=== PATIENT | male | born 1990 | race Two or more races ===

== ENCOUNTER → 2024-07-22 09:15 | Outpatient (BNVA) | payer OTHER, SELFPAY | PROVIDERS: Visit Provider Physician Assistant Medical | DX: M70.841 Other soft tissue disorders related to use, overuse and pressure, right hand (principal) | CPT/HCPCS: 73110; 73130; 99202 ==

== ENCOUNTER → 2024-07-29 09:13 | Outpatient (BNVA) | payer OTHER, SELFPAY | PROVIDERS: Visit Provider Physician Assistant Medical | DX: M70.841 Other soft tissue disorders related to use, overuse and pressure, right hand (principal) | CPT/HCPCS: 99213 ==

== ENCOUNTER → 2024-08-19 09:28 | Outpatient (BNVA) | payer OTHER, SELFPAY | PROVIDERS: PCP Internal Medicine; Visit Provider Physician Assistant Medical | DX: M70.841 Other soft tissue disorders related to use, overuse and pressure, right hand (principal) | CPT/HCPCS: 99214 ==

== ENCOUNTER → 2024-09-02 09:33 | Outpatient (BNVA) | payer OTHER, SELFPAY | PROVIDERS: PCP Internal Medicine; Visit Provider Physician Assistant Medical | DX: M70.841 Other soft tissue disorders related to use, overuse and pressure, right hand (principal) | CPT/HCPCS: 99213 ==

== ENCOUNTER 2024-09-04 07:53 | Outpatient (RCR) | payer OTHER, SELFPAY ==
--- NOTE | 2024-10-27 11:14 | MHC.OT.DC ---
[address] [phone] F: [phone] Occupational Therapy Discharge Note Patient Name: Chris Walker Provider: Johanna Douglas Diagnosis: (R)Thumb tendinitis Date of Surgery: Date of Evaluation: 08/11/24 Date of Discharge: Treatments to Date: 6 Cancellations to Date: No Shows to Date: Discharge Status: Discharge Summary: Patient did not return to therapy but at last treatment he was progressing well. Electronically Signed By: ILDA Hoover/Shannan, CLT Reviewed/agree with student documentation: Therapist: Please Sign and return to therapist, thank you for your referral.
== END 2024-10-27 11:15 | disposition home or self-care (01) ==
LOC: HO.OT 07:53
PROVIDERS: PCP Internal Medicine; Visit Provider Physician Assistant Medical
DX: M77.8 Other enthesopathies, not elsewhere classified (principal)
CPT/HCPCS: 97035; 97110; 97140; 97165